=== PATIENT | male | born 1940 | race Caucasian/White ===

== ENCOUNTER 2023-01-09 10:56 | Outpatient (CLI) | payer MEDICARE, OTHER, SELFPAY ==
--- NOTE | ~2023-01-09 | US_ITS ---
EXAMINATION: US carotid duplex BI DATE: 01/09/2023 11:30 INDICATION: Right carotid bruit TECHNIQUE: Grayscale, color Doppler, and pulsed Doppler images of the cervical carotid arteries were obtained. The degree of vessel stenosis is placed in one of the following categories: normal, <50%, 5 0-69%, >=70% but less than near-occlusion, near-occlusion, or total occlusion. Note that percent sten osis relative to normal distal artery lumen diameter is indirectly measured from velocity measurement s as described by Je, et al. Radiology 2003; 229:340-346. COMPARISON: None. FINDINGS: Cardiac arrhythmia is present. RIGHT: The right common carotid artery (CCA) peak systolic velocity (PSV) is 67 cm/s. The right internal car otid artery (ICA) PSV is 113 cm/s. The right ICA end-diastolic velocity (EDV) is 11 cm/s. The right I CA/CCA PSV ratio is 1.7. Grayscale and color Doppler images yield an estimate of <50% diameter reduct ion from plaque in the ICA. The external carotid artery (ECA) PSV is 284 cm/s. There is reversed flow in the right vertebral artery. LEFT: The left CCA PSV is 70 cm/s. The left ICA PSV is 155 cm/s. The left ICA EDV is 6 cm/s. The left ICA/C CA PSV ratio is 2.2. Grayscale and color Doppler images yield an estimate of 50-69% diameter reductio n from plaque in the ICA. The ECA PSV is 254 cm/s. There is antegrade flow in the left vertebral lexy ry. IMPRESSION: 1. <50% stenosis in the right internal carotid artery. 2. 50-69% stenosis in the left internal carotid artery. 3. Reversal of flow in the right vertebral artery consistent with subclavian steal due to a high-grad e stenosis or occlusion in the more proximal right subclavian artery. Consider carotid CT angiogram f or further evaluation. 4. Cardiac arrhythmia is present. Correlate with EKG . Reviewed, dictated and finalized at location B. IMPRESSION: 1. <50% stenosis in the right internal carotid artery. 2. 50-69% stenosis in the left internal carotid artery. 3. Reversal of flow in the right vertebral artery consistent with subclavian st eal due to a high-grade stenosis or occlusion in the more proximal right subcla vian artery. Consider carotid CT angiogram for further evaluation. 4. Cardiac arrhythmia is present. Correlate with EKG .
== END 2023-01-09 10:57 ==
LOC: GOSHIMG 10:58
PROVIDERS: PCP Family Medicine; Visit Provider Specialist
DX: I65.23 Occlusion and stenosis of bilateral carotid arteries (principal); Z95.5 Presence of coronary angioplasty implant and graft
CPT/HCPCS: 93880

== ENCOUNTER 2024-05-21 19:11 | Emergency (ER) | payer MEDICARE, OTHER, SELFPAY ==
[2024-05-21] VITALS (14 sets, daily range): BP systolic 70–131; BP diastolic 47–98; PULSE 65–83; RESP 16–22; TEMP 36.2–36.6; O2SAT 95–100
--- NOTE | ~2024-05-21 | XR_ITS ---
EXAM: [id number], XR femur RT min 2V, XR hip BI 2V w AP pelvis DATE: 05/21/2024 20:17 (accession [id number]), 05/21/2024 20:22 (accession [id number]), 05/21 20:17 (accession [id number]) HISTORY: fall, unknown injury . COMPARISON: None available. FINDINGS: Decreased mineralization. Uncomplicated appearing knee arthroplasty hardware. Spiral fract ure of the distal femur with one half shaft width lateral displacement and mild lateral angulation, o ne shaft width anterior displacement and 15 degrees posterior angulation, 6.3 cm overlap, and mild me dial rotation. No lytic or blastic lesion. Lumbar degenerative disc disease. Mild bilateral hip osteo arthritic arthritis. Scattered vascular calcifications. No erosion or periosteal change. Soft tissue swelling about the fracture site. IMPRESSION: Anterolaterally displaced, posterior angulated, overlapping, and mildly rotated spiral fracture of th e distal right femur. No pelvic or hip fracture detected. No radiographic evidence of hardware related complication in the right knee. Reviewed, dictated and finalized at location K. IMPRESSION: Anterolaterally displaced, posterior angulated, overlapping, and mildly rotated spiral fracture of the distal right femur. No pelvic or hip fracture detected. No radiographic evidence of hardware related complication in the right knee. IMPRESSION: Anterolaterally displaced, posterior angulated, overlapping, and mildly rotated spiral fracture of the distal right femur. No pelvic or hip fracture detected. No radiographic evidence of hardware related complication in the right knee.
--- NOTE | ~2024-05-21 | CT_ITS ---
EXAMINATION: CT brain wo con DATE: 05/21/2024 20:25 INDICATION: fall, unknonw HI, +ETOH . TECHNIQUE: Computed tomography (CT) of the head was performed without intravenous contrast. The mA wa s adjusted according to patient size. Iterative reconstruction technique was employed. The dose-lengt h product was 605.33 mGy-cm. COMPARISON: None. FINDINGS: No acute intracranial hemorrhage or extra-axial fluid collection. No hydrocephalus, mass, or herniation. No acute ischemic infarct. Unremarkable dural venous sinus attenuation. No acute osseous abnormality. Mild frontal and ethmoid mucosal thickening. Retention cyst or polyp in the left maxillary sinus. Air -fluid level in the right maxillary sinus. The remaining aerated spaces are clear. Moderate atrophy and chronic white matter change. Atherosclerotic intracranial calcification. Bilater al lens replacements. IMPRESSION: No acute intracranial process. Right maxillary sinus findings may represent acute sinusitis or mucosal hemorrhage in the setting of trauma. Reviewed, dictated and finalized at location K. IMPRESSION: No acute intracranial process. Right maxillary sinus findings may represent acute sinusitis or mucosal hemorrh age in the setting of trauma.
--- NOTE | ~2024-05-21 | CT_ITS ---
EXAMINATION: CT cervical spine wo con DATE: 05/21/2024 20:26 INDICATION: fall, unknonw HI, +ETOH TECHNIQUE: Computed tomography (CT) of the cervical spine was performed without intravenous contrast. Automated exposure control and iterative reconstruction technique were employed. The dose-length pro duct was 558.12 mGy-cm. COMPARISON: None. FINDINGS: Vertebral Body Alignment: Minimal retrolisthesis at C3-4. Minimal anterolisthesis at C7-T1. Craniocervical and atlantoaxial alignment: Moderate degenerative change. Alignment intact. Osseous structures/fracture: No evidence of a lytic or blastic process in the visualized spine. No e vidence of acute fracture. Cervical soft tissues: The paraspinal soft tissues planes are maintained. Mild septal thickening in t he upper lungs. Dense calcification in the right thoracic inlet, possibly related to atherosclerotic calcification. Degenerative changes: Multilevel degenerative disc disease and facet arthropathy. No severe central c anal or neural foraminal narrowing. IMPRESSION: No acute fracture or traumatic malalignment in the cervical spine. Mild septal thickening in the upper lungs secondary to interstitial edema or chronic senescent/inters titial change. Reviewed, dictated and finalized at location K. IMPRESSION: No acute fracture or traumatic malalignment in the cervical spine. Mild septal thickening in the upper lungs secondary to interstitial edema or ch ronic senescent/interstitial change.
--- NOTE | ~2024-05-21 | XR_ITS ---
EXAMINATION: XR chest 1V Exam Date/Time: 05/21/2024 20:00 CDT HISTORY: FALL WITH FX Comparison: None. RESULT: Lines, tubes, and devices: None. Lungs and pleura: Clear. Cardiomediastinal silhouette: Unremarkable. Other: No acute osseous or upper abdominal finding. IMPRESSION: No acute cardiopulmonary process. Reviewed, dictated and finalized at location K.
--- NOTE | 2024-05-21 19:24 | ECG_ITS ---
Test Date: 2024-05-21 19:32:18 Measurements Intervals [place] Rate: 84 P: 0 WV: 0 QRS: 56 QRSD: 120 T: 65 QT: 389 QTc: 462 Interpretive Statements ATRIAL FIBRILLATION INTRAVENTRICULAR CONDUCTION DELAY DELAYED PRECORDIAL R/S TRANSITION BORDERLINE ST-T WAVE ABNORMALITY- INF/HIGH LAT LEADS BASELINE ARTIFACT- I, II, III, AVR, AVL, AVF, V2, V5-V6 ABNORMAL ECG No previous ECG available for comparison Electronically Signed On 05-22-2024 06:13:52 CDT by Nathen Rios D.O.
--- NOTE | 2024-05-21 19:25 | ED.LOWEXIN ---
HPI - Extremity Injury (Lower) General Chief Complaint: Extremity Injury, Lower <IVETH Ortiz Last Filed: 05/22/24 04:01> Stated Complaint: ?FALL, RLE DEFORMITY <IVETH Ortiz Last Filed: 05/22/24 04:01> Time Seen by Provider: 05/21/24 19:12 <IVETH Ortiz Last Filed: 05/22/24 04:01> Source: patient, family and EMS <IVETH Ortiz Last Filed: 05/22/24 04:01> Mode of arrival: EMS <IVETH Ortiz Last Filed: 05/22/24 04:01> Limitations: intoxication <IVETH Ortiz Last Filed: 05/22/24 04:01> History of Present Illness HPI Narrative: Patient is an 83 y/o male, with PMH of HTN, HLD, prostate CA, who presents to the ED via EMS with report of a fall. Per EMS report, patient was found down on his garage floor appeared to have fallen. He is unsure how the fall occurred. He is not able to tell me. He has been drinking alcohol today. Family reports he is a daily drinker, at least 10-12 beers per day. They state he was unable to get up off the ground even with her help, which prompted them to contact EMS. Unknown head injury. Patient complains of pain to his right knee. Patient is not on any anticoagulation. <IVETH Ortiz Last Filed: 05/22/24 04:01> Related Data Allergies/Adverse Reactions: Allergies Allergy/AdvReac Type Severity Reaction Status Date / Time No Known Allergies Allergy Verified 05/21/24 19:38 <IVETH Ortiz Last Filed: 05/22/24 04:01> Review of Systems Review of Systems: All systems reviewed & are unremarkable except as noted in HPI. <IVETH Ortiz Last Filed: 05/22/24 04:01> All systems reviewed & are unremarkable except as noted in HPI and below <Daisy Keenan PA-C - Last Filed: 05/22/24 04:01> [facility] Past Medical History Medical History: Medical History CAD (coronary artery disease) Encounter for screening for malignant neoplasm of prostate Gout Hyperlipidemia Hypertension Renal insufficiency <Daisy Keenan PA-C - Last Filed: 05/22/24 04:01> Surgical History Surgical History: Surgical History H/O knee surgery right History of coronary artery stent placement <Daisy Keenan PA-C - Last Filed: 05/22/24 04:01> Social History Social History: Social History Social History: patient declined SDID 04/29/24 Smoking status: Former smoker Tobacco type: cigarettes Smoking end date: 09/11/76 Alcohol intake: current Substance use: never Substance use type: does not use Lack of Transportation: No Lack of Food: Never True Current Housing: I Have Housing Concerned About Future Housing: No Difficulty Paying Gas/Electric Bills: No Difficulty Paying for Meds: No Currently Unemployed: No Difficulty w/ Childcare or Family Care: No Living arrangements: with family Occupation/Education: retired Gender identity (if verbalized by the patient): Male Sexual Orientation (if Verbalized by the Patient): Straight or Heterosexual Spiritual care concerns: No Agree to blood products: Yes <Daisy Keenan PA-C - Last Filed: 05/22/24 04:01> Exam Narrative: GENERAL: Elderly/intoxicated appearing, BMI of 30.9, non-toxic, in no acute distress. HEAD: Normocephalic, atraumatic. RESPIRATORY: Airway patent, respirations nonlabored. Clear to auscultation bilaterally, no rales, rhonchi, wheezing. CARDIOVASCULAR: Regular rate with irregular rhythm without murmurs, rubs, or gallops. Peripheral pulses intact. MUSCULOSKELETAL: Moves all extremities. Able to flex at R knee but has discomfort with this. TTP over distal R femur/superior knee joint spaces. Hematoma formation over R [id number]
[2024-05-21] MEDS: SODIUM CHLORIDE 0.9% IV 1,000 ML 999 ML IV CONT (20:28)
[2024-05-21 20:41] LABS: Basophils Percent Auto 0.3 % (0.2-1.2); Eosinophils Absolute Auto 0.1 K/mm3 (0-0.3); Eosinophils Percent Auto 0.5 % (0-4.4); Hematocrit 34.3 % (42.0-52.0); Hemoglobin 11.9 g/dL (14.0-18.0); Immature Granulocyte Absolute 0.07 K/mm3 (0.00-0.031); Immature Granulocyte Percent A 0.7 % (0-0.5); Immature Platelet Fraction Pct 6.8 % (0.9-11.2); Lymphocytes Absolute Auto 0.55 K/mm3 (0.9-3.2); Lymphocytes Percent Auto 5.7 % (18.3-44.2); Mean Corpuscular HGB Conc 34.7 g/dl (32-36); Mean Corpuscular Hemoglobin 33.9 pg (26-34); Mean Corpuscular Volume 97.7 fl (80-100); Mean Platelet Volume 10.6 fl (7.4-10.4); Monocytes Absolute Auto 0.7 K/mm3 (0.1-0.6); Monocytes Percent Auto 6.7 % (2.6-8.5); Neutrophils Absolute Auto 8.3 K/mm3 (1.3-6.7); Neutrophils Percent Auto 86.1 % (45.5-73.1); Platelet Count Result 110 k/mm3 (150-375); Red Blood Count 3.51 M/mm3 (4.6-6.20); Red Cell Distribution Width 14.1 % (11.5-14.5); White Blood Count 9.7 K/mm3 (4.5-10.0)
[2024-05-21 20:48] LABS: Creatine Kinase 180 U/L (55-170)
[2024-05-21 20:49] LABS: Ethanol 170 mg/dL (<10)
[2024-05-21 20:50] LABS: Alanine Aminotransferase 24 U/L (6-50); Albumin Level 4.3 g/dL (3.5-5.1); Alkaline Phosphatase 140 U/L (38-126); Anion Gap 15 mmol/L (4-12); Aspartate Amino Transferase 36 U/L (17-59); Blood Urea Nitrogen 16 mg/dL (9-20); Calcium 8.7 mg/dL (8.4-10.2); Carbon Dioxide 20 mmol/L (22-30); Chloride 94 mmol/L (98-107); Estimated CRCL calculation 54 ml/min; Estimated Glomerular Filt Rate 58; Glucose 133 mg/dL (65-110); Potassium 3.8 mmol/L (3.4-5.0); Sodium 129 mmol/L (137-145)
[2024-05-21 20:51] LABS: INR 1.2; Prothrombin Time 15.6 Seconds (11.1-14.7)
[2024-05-21] MEDS: ONDANSETRON INJ 4 MG/2 ML VIAL IV PUSH (20:51)
[2024-05-21] MEDS: MORPHINE SULFATE (*CRX) 4 MG/ML INJ IV PUSH (20:51)
[2024-05-21 20:52] LABS: Partial Thromboplastin Time 32.6 Seconds (22.3-36.8)
[2024-05-21 21:32] LABS: Add Urine Microscopic? NO; Appearance Urine Clear (Clear); Bilirubin Urine Negative (Negative); Blood Urine Negative (Negative); Color Urine Yellow (Yellow); Glucose Urine UA Negative (Negative); Ketones Urine Trace mg/dL (Negative); Leukocyte Esterase Ur Negative LEU/UL (Negative); Nitrate Urine Negative (Negative); Protein Urine Negative (Negative); Specific Grav Ur 1.013 (1.001-1.035)
--- NOTE | 2024-05-21 21:37 | PC.NURSE ---
CALLED BLOOD BANK, SPOKE WITH MESSI. MADE THEM AWARE OF IMPENDING NEED FOR EMERGENT RELEASE OF BLOOD SHORTLY.
--- NOTE | 2024-05-21 21:40 | PC.NURSE ---
Emergency Blood release form completed and blood infusion consent obtained at this time.
--- NOTE | 2024-05-21 21:54 | PC.NURSE ---
Pt acutely hypotensive. Increase swelling to RUE. DP intact, strong pulse. Bedside ultrasound completed by MD Beltran.
--- NOTE | 2024-05-21 22:05 | PC.NURSE ---
Report called to VERONIQUE Callahan at [facility]. All questions answered at this time. Pt to be transferred by air.
[2024-05-21] MEDS: TUBING, BLOOD SET 1 EACH XX ×3 (22:07→22:44)
[2024-05-21] MEDS: SODIUM CHLORIDE 0.9% IV 1,000 ML 999 ML (22:07)
[2024-05-21] MEDS: SODIUM CHLORIDE 0.9% IV 250 ML 30 ML IV CONT ×3 (22:07→22:44)
[2024-05-21] MEDS: TUBING, BLOOD PLUM PUMP TUBING 1 EACH XX ×2 (22:07)
--- NOTE | 2024-05-21 22:08 | PC.NURSE ---
2 units PRBC infusing at this time. EDP Daisy at bedside.
--- NOTE | 2024-05-21 22:21 | PC.NURSE ---
vrbo 50mcg fentanyl stat
[2024-05-21] MEDS: fentaNYL CITRATE INJ (*CRX) 100 MCG/2 ML VIAL 50 MCG IV PUSH (22:23)
[2024-05-21] MEDS: TRANEXAMIC ACID 1,000MG/ISO100 1,000 MG/100 ML BAG 200 MG IVPB ×2 (22:23→22:25)
[2024-05-21] MEDS: CALCIUM GLUCONATE 1,000 MG/10 ML VIAL 1000 MG IV PUSH (22:42)
[2024-05-21] MEDS: SODIUM CHLORIDE 0.9% IV 500 ML 999 ML (22:44)
--- NOTE | 2024-05-21 23:05 | PC.NURSE ---
Platelets and fourth unit of whole blood scanning overrode in TAR due to pt leaving with air evac leaving with pt prior to scanning.
== END 2024-05-21 23:13 | disposition short-term general hospital (02) ==
PROVIDERS: Emergency Provider Physician Assistant; PCP Physician Assistant Medical
DX: S72.341A Displaced spiral fracture of shaft of right femur, initial encounter for closed fracture (principal); S70.11XA Contusion of right thigh, initial encounter; F10.129 Alcohol abuse with intoxication, unspecified; Y90.6 Blood alcohol level of 120-199 mg/100 ml; I95.9 Hypotension, unspecified; E87.1 Hypo-osmolality and hyponatremia; I10 Essential (primary) hypertension; I25.10 Atherosclerotic heart disease of native coronary artery without angina pectoris; E78.5 Hyperlipidemia, unspecified; N28.9 Disorder of kidney and ureter, unspecified; M10.9 Gout, unspecified; Z95.5 Presence of coronary angioplasty implant and graft; Z85.46 Personal history of malignant neoplasm of prostate; Z79.899 Other long term (current) drug therapy; I48.91 Unspecified atrial fibrillation; I45.9 Conduction disorder, unspecified; R94.31 Abnormal electrocardiogram [ECG] [EKG]; W19.XXXA Unspecified fall, initial encounter
CPT/HCPCS: 36415; 36430; 70450; 71045; 72125; 73521; 73552; 73560; 80053; 80307; 81003; 82550; 83735; 85025; 85055; 85610; 85730; 86850; 86900; 86901; 86920; 93005; 96361; 96365; 96375; 99285; J0612; J2270; J2405; J3010; J7030; J7040; J7050; P9016; P9034